=== PATIENT | male | born 1985 | race Caucasian/White ===

== ENCOUNTER 2020-08-13 19:13 | Emergency (ER) | payer MEDICAID, OTHER ==
[~2020-08-13] VITALS: Ht 188 cm; Wt 79.5 kg
[2020-08-13 19:18] VITALS: BP 131/78
[2020-08-13 21:23] LABS: COVID AG,FIA SOURCE NASOPHARYNGEAL
== END 2020-08-13 20:08 | disposition home or self-care (01) ==
LOC: EMS 19:13
DX: Z20.822 Contact with and (suspected) exposure to COVID-19 (principal); F17.210 Nicotine dependence, cigarettes, uncomplicated; F12.90 Cannabis use, unspecified, uncomplicated
CPT/HCPCS: 87426

== ENCOUNTER 2021-05-05 14:09 | Emergency (ER) | payer OTHER ==
[~2021-05-05] VITALS: Ht 182.9 cm; Wt 100.0 kg
[2021-05-05] MEDS ORDERED: BICT1TAB PO (14:15)
[2021-05-05] MEDS ORDERED: BUPR-93 PO (14:15)
[2021-05-05] MEDS ORDERED: IBUPROFEN 800 MG TABLET PO ONE (15:30)
[2021-05-05 16:48] VITALS: BP 139/96
== END 2021-05-05 16:55 | disposition home or self-care (01) ==
LOC: EMS 14:11
DX: M25.572 Pain in left ankle and joints of left foot (principal); F17.210 Nicotine dependence, cigarettes, uncomplicated; F15.90 Other stimulant use, unspecified, uncomplicated; F32.9 Major depressive disorder, single episode, unspecified; Z79.899 Other long term (current) drug therapy
CPT/HCPCS: 99283